=== PATIENT | female | born 1945 | race Caucasian/White ===

== ENCOUNTER 2019-06-28 13:53 | Emergency (ER) | payer OTHER ==
[~2019-06-28] VITALS: Ht 157.5 cm; Wt 102.1 kg
--- NOTE | ~2019-06-28 | EMS ---
[facility] [address] [place] [address] EMS Patient Care Report Name: ZORAIDA STEIN Room #: DEP CONSTANCE Cruz#: [id number] Admission: 06/28/19 Attend Phys: Discharge: 06/28/19 Date of : 49 Report #: [id number] THIS REPORT FOR: //name// Report Transmitted: 06/28/2019 15:51 EMS Care Summary [facility] MED-ACT Incident [id number] @ 06/28/2019 13:11 Incident Location [address] [place] [address] Patient ZORAIDA STEIN Female, 73 Years 1945 Patient Address [address] [place] [address] Patient History Dementia,Diabetes,Depression,Hypothyroidism,Chronic Kidney Disease,Back Pain (Chronic), Patient Allergies Penicillin allergy, Patient Medications Carvedilol, Amlodipine, Trazodone, Melatonin, Aricept, Atorvastatin, Cymbalta, Omeprazole, Chief Complaint Back pain Disposition Transported No Lights/[place] [facility] Reason Psychiatric Problem/Abnormal Behavior/Suicide Attempt Transported To [facility] Narrative [facility] [address] [place] [address] EMS Patient Care Report Name: ZORAIDA STEIN Room #: DEP Nancy#: [id number] Admission: 06/28/19 Attend Phys: Discharge: 06/28/19 Date of : 49 Report #: [id number] responded to the assisted living [facility]. Pt was found in her room, pacing. She is angry and yelling at staff and family. Staff report that she is aggressive and has lots of back pain. Pt has previous back surgery and has been dealing with chronic pain. She has had tramadol and lidocaine patch and it is not helping. Staff got new orders for muscle relaxers but has been unable to give it to her. They have tried several pain control tactics without success. Pt is uncooperative with EMS on arrival. She will not get on the cot or participate with assessment. Convinced pt to get on the cot. She reported that she will have to be strapped down or she will not stay on the cot. Secured with straps. Monitored vitals and moved her to M134. IV saline lock placed in right hand. 50 mcg of fentanyl given IV for pain. 2.5 mg versed given IV for her aggression. Pt calmed down and closed her eyes. She was easily awaken with voice. Pt rested during transport. Placed on O2 via NC and monitored ETCO2. Placed pt in ER RM at the ER with RN at side and report given. Initial Vitals @13:31P: 105,R: 24,BP: 130/81,Pain: 10/10,GCS: 15,SpO2: 95,Revised Trauma: 12, @13:40P: 93,R: 22,BP: 113/46,Pain: 10/10,GCS: 15,Glucose: 174,SpO2: 95,Revised Trauma: 12, @13:47P: 90,R: 30,BP: 106/61,GCS: 14,EtCO2: 20,SpO2: 91,Revised Trauma: 11, Assessments @13:25MENTAL:Combative,Person Oriented,Place Oriented,Time Oriented,Event Oriented,SKIN:Diaphoresis,HEENT:LUNG SOUNDS:ABDOMEN:PELVIS//GI:EXTREMITIES:Capillary Refill: Right Upper: < 2 Sec,Left Arm: No Abnormalities,Right Arm: No Abnormalities,Left Leg: No Abnormalities,Right Leg: No Abnormalities,PULSE:Radial: 2+ Normal,NEURO: Impression Back Pain Procedures @13:38Saline Lock 10cc (20 ga) Site: Hand-LeftResponse: UnchangedSucceeded@13:39Fentanyl - 50 Micrograms (mcg) - Intravenous (IV)Response: Improved@13:41Midazolam - 2.5 Milligrams (mg) - Intravenous (IV)Response: Improved@13:45Oxygen FlowRate: 4 Device: CO2 Nasal Cannula Response: UnchangedSucceeded Timeline 13:09,Call Received 13:09,Psap Call 13:11,Dispatched 13:12,En Route 13:19,On Scene 13:21,At Patient 13:31,BP: 130/81 M,PULSE: 105,RR: 24 R,SPO2: 95 Ox,ETCO2: ,BG: ,PAIN: 10,GCS: [address] [address] EMS Patient Care Report Name: ZORAIDA STEIN Room #: [facility] CONSTANCE Cruz#: [id number] Admission: 06/28/19 Attend Phys: Discharge: 06/28/19 Date of : 49 Report #: [id number] 15, 13:38,Saline Lock 10cc 20 ga Site: Hand-Left,Response: UnchangedSucceeded, 13:39,Fentanyl - 50 Micrograms (mcg) - Intravenous (IV),Response: Improved 13:40,Depart Scene 13:40,BP: 113/46 M,PULSE: 93,RR: 22 R,SPO2: 95 Ox,ETCO2: ,B,PAIN: 10,GCS: 15, 13:41,Midazolam - 2.5 Milligrams (mg) - Intravenous (IV),Response: Improved 13:45,Oxygen FlowRate: 4 Device: CO2 Nasal Cannula Response: UnchangedSucceeded, 13:47,At Destination 13:47,BP: 106/61 M,PULSE: 90,RR: 30 R,SPO2: 91 Ox,ETCO2: 20 ,BG: ,PAIN: ,GCS: 14, 14:01,Call Closed Disclaimer v1.1 Copyright 2020 [employer] This EMS Care Summary contains data elements from the applicable legal record (which may be displayed differently). It is designed to provide pertinent information for the following purposes: continuity of care, clinical quality, and state data reporting. The complete legal record is available to ED staff and administrators of the receiving hospital in [employer]'s Patient Tracker. All data is provided "as is."
[2019-06-28] MEDS ORDERED: NORVASC 2.5 MG2.5 M1 PO (14:43)
[2019-06-28] MEDS ORDERED: LIPITOR40 MG PO (14:43)
[2019-06-28] MEDS ORDERED: ARICEPT10 M1 PO (14:43)
[2019-06-28] MEDS ORDERED: ASA81BEC PO (14:43)
[2019-06-28] MEDS ORDERED: BUSPIRONE HCL7.5 MG PO (14:44)
[2019-06-28] MEDS ORDERED: CARVEDILOL12.5 MG PO (14:44)
[2019-06-28] MEDS ORDERED: HUMALOG100 UNIT/1 SUBQ (14:45)
[2019-06-28] MEDS ORDERED: CYMBALTA60 MG PO (14:45)
[2019-06-28] MEDS ORDERED: HUMALOG KW100 UNIT/1 SUBQ (14:47)
[2019-06-28] MEDS ORDERED: IPRAT-ALBUT 0.5-3 ML INH (14:48)
[2019-06-28] MEDS ORDERED: LANTUS SUBQ (14:48)
[2019-06-28] MEDS ORDERED: LOPERAMIDE2 MG PO (14:49)
[2019-06-28] MEDS ORDERED: COZAAR 25 MG TA25 M1 PO (14:49)
[2019-06-28] MEDS ORDERED: SYNTHROID100 MC1 PO (14:49)
[2019-06-28] MEDS ORDERED: LIDODERM1 EACH TOP (14:49)
[2019-06-28] MEDS ORDERED: MELATONIN5 M4 PO (14:50)
[2019-06-28] MEDS ORDERED: MI-ACID 400-40355 ML PO (14:51)
[2019-06-28] MEDS ORDERED: OMEPRAZOLE 20 M20 M1 PO (14:52)
[2019-06-28] MEDS ORDERED: TRAMADOL 50 MG50 MG PO (14:52)
[2019-06-28] MEDS ORDERED: TRULICITY1.5 MG/0.5 SUBQ (14:53)
[2019-06-28] MEDS ORDERED: ATIVAN1 M1 PO (15:07)
[2019-06-28 16:11] VITALS: BP 120/64
== END 2019-06-28 16:13 | disposition home or self-care (01) ==
LOC: ER 13:53
DX: M48.54XA Collapsed vertebra, not elsewhere classified, thoracic region, initial encounter for fracture (principal); M62.830 Muscle spasm of back; E03.9 Hypothyroidism, unspecified; E11.22 Type 2 diabetes mellitus with diabetic chronic kidney disease; N18.3 Chronic kidney disease, stage 3 (moderate); G89.29 Other chronic pain; E66.9 Obesity, unspecified; Z88.6 Allergy status to analgesic agent; Z88.0 Allergy status to penicillin; Z79.899 Other long term (current) drug therapy; Z79.4 Long term (current) use of insulin; Z79.82 Long term (current) use of aspirin; Z87.01 Personal history of pneumonia (recurrent); Z98.890 Other specified postprocedural states

== ENCOUNTER 2019-07-02 03:51 | Emergency (ER) | payer OTHER ==
[~2019-07-02] VITALS: Ht 160 cm; Wt 76.2 kg
--- NOTE | ~2019-07-02 | EMS ---
[address] [address] EMS Patient Care Report Name: ZORAIDA STEIN Room #: DEP CONSTANCE Cruz#: [id number] Admission: 07/02/19 Attend Phys: Discharge: 07/02/19 Date of : 49 Report #: [id number] THIS REPORT FOR: //name// Report Transmitted: 07/02/2019 06:38 EMS Care Summary [facility] MED-ACT Incident [id number] @ 07/02/2019 03:18 Incident Location [address] [place] [address] Patient ZORAIDA STEIN Female, 73 Years 1945 Patient Address [address] [place] [address] Patient History Dementia,Diabetes,Depression,Hypothyroidism,Chronic Kidney Disease,Back Pain (Chronic), Patient Allergies Penicillin allergy, Patient Medications Trazodone, Melatonin, Omeprazole, Carvedilol, Amlodipine, Atorvastatin, Cymbalta, Aricept, Chief Complaint L Knee Pain Disposition Transported No Lights/[place] Dispatch Reason Falls Transported To [facility] Narrative [address] [address] EMS Patient Care Report Name: ZORAIDA STEIN Room #: DEP CONSTANCE Cruz#: [id number] Admission: 07/02/19 Attend Phys: Discharge: 07/02/19 Date of : 49 Report #: [id number] dispatched to a C1 fall. Upon arrival found patient sitting on edge of bed responsive with spontaneous respirations intact. Staff states they found patient on floor besides her bed. Staff states patient has history of dementia and is at her current baseline mental status. Staff states they helped patient get back into bed, however patient now just seems restless and rubbing her left leg. Patient states her left knee hurts. She denies all other complains. Staff denies patient being on blood thinning medications. Patient does have obvious injury or deformity noted. Patient assisted to her feet and placed on cot. Patient rested semi-maddox's on cot for duration of transport without change in condition. On arrival gave report to ED staff and transferred care. Patient slide from cot to bed via draw sheet and left in care of ED staff. Initial Vitals @03:44P: 84, @03:38P: 80, @03:45P: 93,R: 20,BP: 156/78,Pain: 2/10,GCS: 14,SpO2: 95,Revised Trauma: 12, @03:37P: 62,R: 20,BP: 133/87,Pain: 2/10,GCS: 14,SpO2: 98,Revised Trauma: 12, Assessments @03:28MENTAL:Confused,SKIN:HEENT:Eyes: Left Pupil: 3-mm,Eyes: Right Pupil: 3-mm,Head/Face: No Abnormalities,Neck/Airway: No Abnormalities,LUNG SOUNDS:ABDOMEN:PELVIS//GI:EXTREMITIES:Capillary Refill: Left Upper: < 2 Sec,Left Leg: ANA MARIA,Left Arm: No Abnormalities,Right Arm: No Abnormalities,Right Leg: No Abnormalities,PULSE:Radial: 2+ Normal,NEURO: Impression Injury of Lower Leg Timeline 03:17,Call Received 03:17,Psap Call 03:18,Dispatched 03:19,En Route 03:26,On Scene 03:27,At Patient 03:37,BP: 133/87 M,PULSE: 62,RR: 20 R,SPO2: 98 Ox,ETCO2: ,BG: ,PAIN: 2,GCS: 14, 03:38,BP: / M,PULSE: 80,RR: R,SPO2: Ox,ETCO2: ,BG: ,PAIN: ,GCS: , 03:38,Depart Scene 03:44,BP: / M,PULSE: 84,RR: R,SPO2: Ox,ETCO2: ,BG: ,PAIN: ,GCS: , 03:45,BP: 156/78 M,PULSE: 93,RR: 20 R,SPO2: 95 Ox,ETCO2: ,BG: ,PAIN: 2,GCS: 14, 03:45,At Destination 04:03,Call Closed Disclaimer v1.1 Copyright 2020 [employer] [address] [address] EMS Patient Care Report Name: EMILZORAIDA Room #: EDILBERTO Cruz#: [id number] Admission: 07/02/19 Attend Phys: Discharge: 07/02/19 Date of : 49 Report #: [id number] This EMS Care Summary contains data elements from the applicable legal record (which may be displayed differently). It is designed to provide pertinent information for the following purposes: continuity of care, clinical quality, and state data reporting. The complete legal record is available to ED staff and administrators of the receiving hospital in [facility]'s Patient Tracker. All data is provided "as is."
[~2019-07-02 03:51] MED LIST: ARICEPT10 M1 PO; ASA81BEC PO; ATIVAN1 M1 PO; BUSPIRONE HCL7.5 MG PO; CARVEDILOL12.5 MG PO; COZAAR 25 MG TA25 M1 PO; CYMBALTA60 MG PO; HUMALOG KW100 UNIT/1 SUBQ; HUMALOG100 UNIT/1 SUBQ; IPRAT-ALBUT 0.5-3 ML INH; LANTUS SUBQ; LIDODERM1 EACH TOP; LIPITOR40 MG PO; LOPERAMIDE2 MG PO; MELATONIN5 M4 PO; MI-ACID 400-40355 ML PO; NORVASC 2.5 MG2.5 M1 PO; OMEPRAZOLE 20 M20 M1 PO; SYNTHROID100 MC1 PO; TRAMADOL 50 MG50 MG PO; TRULICITY1.5 MG/0.5 SUBQ
[2019-07-02] MEDS ORDERED: HUMALOG100 UNIT/1 SUBQ (03:55)
[2019-07-02] MEDS ORDERED: BACLOFEN 10MG T10 MG PO (03:56)
[2019-07-02] MEDS ORDERED: LORAZEPAM 1 MG T1 MG PO (04:00)
[2019-07-02] MEDS ORDERED: OMEPRAZOLE40 MG PO (04:01)
[2019-07-02] MEDS ORDERED: TRAZODONE HCL50 MG PO (04:02)
[2019-07-02] MEDS ORDERED: ACETAMINOPHEN500 MG PO (04:03)
[2019-07-02] MEDS ORDERED: TYLENOL EXTRA500 MG PO (04:04)
[2019-07-02] MEDS ORDERED: VITAMIN D34000 UNIT PO (04:06)
[2019-07-02 05:49] VITALS: BP 120/51
== END 2019-07-02 06:20 ==
LOC: ER 03:51
DX: S82.142A Displaced bicondylar fracture of left tibia, initial encounter for closed fracture (principal); F03.90 Unspecified dementia, unspecified severity, without behavioral disturbance, psychotic disturbance, mood disturbance, and anxiety; E11.22 Type 2 diabetes mellitus with diabetic chronic kidney disease; N18.3 Chronic kidney disease, stage 3 (moderate); E03.9 Hypothyroidism, unspecified; Z79.82 Long term (current) use of aspirin; Z79.4 Long term (current) use of insulin; Z79.899 Other long term (current) drug therapy; Z88.8 Allergy status to other drugs, medicaments and biological substances; Z88.0 Allergy status to penicillin; W19.XXXA Unspecified fall, initial encounter; Y93.89 Activity, other specified; Y92.89 Other specified places as the place of occurrence of the external cause; Y99.8 Other external cause status